=== PATIENT | male | born 1970 | race Caucasian/White ===

== ENCOUNTER 2020-03-07 21:01 | Emergency (ER) | payer SELFPAY ==
[~2020-03-07] VITALS: Ht 177.8 cm; Wt 78.0 kg
[2020-03-07] MEDS ORDERED: IPRATROPIUM BROMIDE (0.02%) 0.5MG/2.5ML NEB HHN STA (21:44)
[2020-03-07] MEDS ORDERED: METHYLPREDNISOLONE SOD SUCC 125 MG/2 ML VIAL IV STA (21:44)
[2020-03-07] MEDS ORDERED: MAGNESIUM 2 G PREMIX 50 ML IV ONE (21:45)
[2020-03-07] MEDS ORDERED: ALBUTEROL (0.083%) 2.5MG/3ML NEB HHN SCH (22:00)
[2020-03-07] MEDS ORDERED: LIDOCAINE 1%/EPI 1:100,000 10 ML VIAL IJ ONE (22:00)
[2020-03-07] MEDS ORDERED: BACITRACIN ZINC OINT UDPKT TOP ONE (22:00)
[2020-03-07] MEDS ORDERED: TETANUS, DIPHTHERIA, PERTUSSIS VAC/PF 0.5ML (>7YR OLD) IM ONE (22:00)
[2020-03-07 22:45] VITALS: BP 134/91
[2020-03-07] MEDS ORDERED: LIDOCAINE HCL/EPINEPHRINE 1%-EPI 1:100,000 20 ML VIAL INFIL NR (23:30)
== END 2020-03-07 23:00 | disposition home or self-care (01) ==
LOC: ER 21:13 → CANBEDREQ 03-08 06:05
DX: S01.01XA Laceration without foreign body of scalp, initial encounter (principal); F10.229 Alcohol dependence with intoxication, unspecified; I49.9 Cardiac arrhythmia, unspecified; R51.9 Headache, unspecified; W01.190A Fall on same level from slipping, tripping and stumbling with subsequent striking against furniture, initial encounter; Y93.89 Activity, other specified; Y92.018 Other place in single-family (private) house as the place of occurrence of the external cause; Y90.9 Presence of alcohol in blood, level not specified
CPT/HCPCS: 12001; 70450; 71045; 90471; 90715; 93005; 99285; Z7610; J3490

== ENCOUNTER 2020-12-14 00:12 | Emergency (ER) | payer MEDICAID ==
[~2020-12-14] VITALS: Ht 175.3 cm; Wt 77.0 kg
[2020-12-14] MEDS ORDERED: TETANUS, DIPHTHERIA, PERTUSSIS VAC/PF 0.5ML (>7YR OLD) IM ONE (01:15)
[2020-12-14] MEDS ORDERED: BACITRACIN ZINC OINT UDPKT TOP ONE (01:15)
[2020-12-14 04:25] VITALS: BP 114/65
== END 2020-12-14 05:32 | disposition home or self-care (01) ==
LOC: ER 00:12
DX: S01.01XA Laceration without foreign body of scalp, initial encounter (principal); F10.21 Alcohol dependence, in remission; W07.XXXA Fall from chair, initial encounter; Y93.89 Activity, other specified; Y92.018 Other place in single-family (private) house as the place of occurrence of the external cause
CPT/HCPCS: 12001; 90471; 90715; 99284